=== PATIENT | male | born 1950 | race Caucasian/White ===

== ENCOUNTER 2018-02-18 14:43 | Inpatient (IN) | payer MEDICARE, OTHER ==
[~2018-02-18] VITALS: Ht 188 cm; Wt 90.9 kg
[2018-02-18] MEDS ORDERED: SODIUM CHLORIDE 0.9% 1,000 ML IV ONE (15:06)
[2018-02-18] MEDS ORDERED: ONDANSETRON HCL 4 MG/2 ML VIAL IV ONE (15:15)
[2018-02-18] MEDS ORDERED: MORPHINE SULFATE 4 MG/ML SYR/VIAL IV ONE (15:15)
[2018-02-18 16:23] LABS: Basophils # (auto) 0 uL; Eosinophils # (auto) 0 uL; Lymphocytes # (auto) 1.1 uL; Monocytes # (auto) 0.7 uL; Monocytes % (auto) 4.2 % (0.0-12.0); Nucleated Red Blood Cells % 0.1 %
[2018-02-18 16:25] LABS: Basophils % (auto) 0.2 % (0.0-2.0); Eosinophils % (auto) 0.1 % (0.0-7.0); Hematocrit 41.9 % (41.0-53.0); Hemoglobin 14.4 g/dL (13.5-17.5); Mean Corpuscular Hemoglobin 34.9 pg (28.0-32.0); Mean Corpuscular Hgb Conc. 34.3 g/dL (32.0-36.0); Mean Corpuscular Volume 101.7 fL (80.0-100.0); Neutrophils # (auto) 13.8 uL; Neutrophils % (auto) 88.5 % (37.0-80.0); Platelet Count (auto) 251 10^3/uL (140-450); Red Blood Cells 4.12 10^6/uL (4.5-5.90); Red Cell Distribution Width 13.3 % (11.8-14.3); White Blood Cell 15.6 10^3/uL (4.4-10.8)
[2018-02-18 16:34] LABS: Alanine Aminotransferase 49 U/L (16-61); Albumin 4.4 g/dL (3.4-5.0); Anion Gap 12 (5-15); Aspartate Aminotransferase 30 U/L (15-37); BUN/Creatinine Ratio 16.2; Blood Urea Nitrogen 17 mg/dL (7-18); Calcium 8.7 mg/dL (8.5-10.1); Carbon Dioxide 23 mmol/L (21-32); Chloride 107 mmol/L (98-107); GFR African American 90 mL/min; GFR Non-African American 75 mL/min; Glucose 115 mg/dL (74-106); Potassium 3.7 mmol/L (3.5-5.1); Sodium 142 mmol/L (136-145)
[2018-02-18 16:38] LABS: Alkaline Phosphatase 108 U/L (45-117); Bilirubin, Total 0.4 mg/dL (0.2-1.0); Total Protein 8.2 g/dL (6.4-8.2)
[2018-02-18] MEDS ORDERED: PIPERACILLIN-TAZOB 3.375GM 100 ML IV ONE (17:15)
[2018-02-18] MEDS ORDERED: ONDANSETRON HCL 4 MG/2 ML VIAL IV PRN (17:45)
[2018-02-18] MEDS ORDERED: cefTRIAXone 1GM/50ML D5W 50 ML IV ONE (17:45)
[2018-02-18] MEDS ORDERED: DOCUSATE SOD 100 MG CAP PO PRN (17:45)
[2018-02-18] MEDS ORDERED: MORPHINE SULFATE 4 MG/ML SYR/VIAL IV PRN (17:45)
[2018-02-18] MEDS ORDERED: TEMAZEPAM 15 MG CAP PO PRN (17:45)
[2018-02-18] MEDS ORDERED: ACETAMINOPHEN 325 MG TAB PO PRN (17:45)
[2018-02-18] MEDS ORDERED: HYDROcodone-ACET 5/325MG TAB PO PRN (17:45)
[2018-02-18] MEDS: SODIUM CHLORIDE 0.9% 1,000 ML IV SCH (18:07)
[2018-02-18 20:05] LABS: Urine Bacteria NONE SEEN /hpf (None Seen); Urine Blood 2+ /uL (Negative); Urine Mucus FEW (None Seen); Urine Specific Gravity 1.016 (1.001-1.035); Urine WBC 1 /hpf (0 - 3)
[2018-02-18 22:15] VITALS: BP 133/79
[2018-02-18] MEDS: FAMOTIDINE 20 MG TAB PO SCH (22:57)
[2018-02-19] VITALS (8 sets, daily range): BP systolic 104–133; BP diastolic 64–79
[2018-02-19] MEDS ORDERED: MULTTAB61 PO (00:14)
[2018-02-19] MEDS: SODIUM CHLORIDE 0.9% 1,000 ML IV SCH ×3 (02:03→18:47)
[2018-02-19 06:10] LABS: Basophils # (auto) 0 uL; Eosinophils # (auto) 0 uL; Eosinophils % (auto) 0.6 % (0.0-7.0); Monocytes % (auto) 13.4 % (0.0-12.0); Nucleated Red Blood Cells % 0.1 %
[2018-02-19 06:13] LABS: Basophils % (auto) 0.4 % (0.0-2.0); Hematocrit 35.7 % (41.0-53.0); Hemoglobin 12.7 g/dL (13.5-17.5); Lymphocytes # (auto) 1.7 uL; Lymphocytes % (auto) 22.4 % (10.0-50.0); Mean Corpuscular Hgb Conc. 35.6 g/dL (32.0-36.0); Mean Corpuscular Volume 100.3 fL (80.0-100.0); Neutrophils # (auto) 4.9 uL; Neutrophils % (auto) 63.2 % (37.0-80.0); Platelet Count (auto) 217 10^3/uL (140-450); Red Blood Cells 3.56 10^6/uL (4.5-5.90); Red Cell Distribution Width 13.4 % (11.8-14.3); White Blood Cell 7.7 10^3/uL (4.4-10.8)
[2018-02-19 06:19] LABS: Mean Corpuscular Hemoglobin 34.9 pg (28.0-32.0)
[2018-02-19 08:34] LABS: Potassium 3.9 mmol/L (3.5-5.1)
[2018-02-19 08:45] LABS: Albumin 3.4 g/dL (3.4-5.0); BUN/Creatinine Ratio 19.7; Bilirubin, Total 0.6 mg/dL (0.2-1.0); Calcium 8.6 mg/dL (8.5-10.1)
[2018-02-19] MEDS: MULTIPLE VITAMIN TAB PO SCH (09:26)
[2018-02-19] MEDS: FAMOTIDINE 20 MG TAB PO SCH ×2 (09:27→21:45)
[2018-02-19] MEDS: cefTRIAXone 1GM/50ML D5W 50 ML IV SCH (09:27)
[2018-02-19] MEDS ORDERED: MANNITOL FTV 25% 12.5 GM/50 ML 50 ML IV ONE (16:15)
[2018-02-19] MEDS ORDERED: KETOROLAC TROMETH 30 MG/ML 1ML VIAL IV PRN (17:15)
[2018-02-19] MEDS: TAMSULOSIN HYDROCHLORIDE 0.4 MG CAP PO SCH (17:52)
[2018-02-19] MEDS ORDERED: HYDROcodone-ACET 5/325MG TAB PO PRN (19:00)
[2018-02-20] MEDS: SODIUM CHLORIDE 0.9% 1,000 ML IV SCH ×3 (03:12→20:25)
[2018-02-20 05:13] VITALS: BP 121/74
[2018-02-20 06:27] LABS: Basophils # (auto) 0 uL; Eosinophils # (auto) 0.1 uL; Lymphocytes # (auto) 1.6 uL; Monocytes # (auto) 0.7 uL; Neutrophils # (auto) 3.8 uL; Nucleated Red Blood Cells % 0.1 %; White Blood Cell 6.2 10^3/uL (4.4-10.8)
[2018-02-20 06:30] LABS: Basophils % (auto) 0.3 % (0.0-2.0); Eosinophils % (auto) 1.2 % (0.0-7.0); Hematocrit 37.1 % (41.0-53.0); Mean Corpuscular Hemoglobin 35.1 pg (28.0-32.0); Mean Corpuscular Volume 100.5 fL (80.0-100.0); Monocytes % (auto) 11.5 % (0.0-12.0); Platelet Count (auto) 205 10^3/uL (140-450); Red Blood Cells 3.69 10^6/uL (4.5-5.90); Red Cell Distribution Width 13.5 % (11.8-14.3)
[2018-02-20 06:48] LABS: BUN/Creatinine Ratio 16.2; Calcium 8.5 mg/dL (8.5-10.1); Potassium 3.8 mmol/L (3.5-5.1)
[2018-02-20 08:00] VITALS: BP 144/82
[2018-02-20 09:00] VITALS: BP 144/82
[2018-02-20] MEDS: FAMOTIDINE 20 MG TAB PO SCH ×2 (09:02→21:52)
[2018-02-20] MEDS: MULTIPLE VITAMIN TAB PO SCH (09:02)
[2018-02-20] MEDS: cefTRIAXone 1GM/50ML D5W 50 ML IV SCH (09:03)
[2018-02-20 13:00] VITALS: BP 124/80
[2018-02-20 17:00] VITALS: BP 131/74
[2018-02-20] MEDS: TAMSULOSIN HYDROCHLORIDE 0.4 MG CAP PO SCH (17:11)
[2018-02-20 22:10] VITALS: BP 129/74
[2018-02-21] MEDS: SODIUM CHLORIDE 0.9% 1,000 ML IV SCH ×3 (05:11→20:43)
[2018-02-21 05:29] VITALS: BP 121/70
[2018-02-21 06:52] LABS: INR 1.05 (0.9-1.15); Partial Thromboplastin Time 29.4 sec (23.78-33.04); Prothrombin Time 11.2 sec (9.27-12.13)
[2018-02-21 09:00] VITALS: BP 142/79
[2018-02-21] MEDS: cefTRIAXone 1GM/50ML D5W 50 ML IV SCH (09:14)
[2018-02-21] MEDS: MULTIPLE VITAMIN TAB PO SCH (10:00)
[2018-02-21] MEDS: FAMOTIDINE 20 MG TAB PO SCH ×2 (10:00→21:21)
[2018-02-21] MEDS ORDERED: IOHEXOL 300 MG/ML 100ML BOTTLE IJ ONE (11:22)
[2018-02-21] MEDS ORDERED: ceFAZolin 1GM/50ML 50 ML IV ONE (11:24)
[2018-02-21] MEDS ORDERED: MIDAZOLAM HCL 1MG/1ML-2 ML VIAL ONE (11:30)
[2018-02-21] MEDS ORDERED: fentaNYL CITRATE 100 MCG/2 ML VL ONE (11:30)
[2018-02-21] MEDS ORDERED: PROPOFOL 10 MG/ML 20 ML IV ONE (11:45)
[2018-02-21] MEDS ORDERED: DEXAMETHASONE SOD PHOS 10MG/1ML VIAL INJ ONE (11:45)
[2018-02-21] MEDS ORDERED: MEPERIDINE HCL (50 MG/ML) 1 ML VIAL ONE (11:50)
[2018-02-21] MEDS ORDERED: ePHEDrine SULFATE 50 MG/ML AMP IV PRN (12:15)
[2018-02-21] MEDS ORDERED: KETOROLAC TROMETH 30 MG/ML 1ML VIAL IV ONE (12:15)
[2018-02-21] MEDS ORDERED: MORPHINE SULFATE 4 MG/ML SYR/VIAL IV PRN (12:15)
[2018-02-21] MEDS ORDERED: ONDANSETRON HCL 4 MG/2 ML VIAL IV ONE (12:15)
[2018-02-21] MEDS ORDERED: LABETALOL HCL 5 MG/ML 4ML SYRINGE IV PRN (12:15)
[2018-02-21] MEDS ORDERED: HYDROmorphone HCL 2 MG/ML VL IV PRN (12:15)
[2018-02-21] MEDS ORDERED: MIDAZOLAM HCL 1MG/1ML-2 ML VIAL IV PRN (12:15)
[2018-02-21] MEDS ORDERED: KETOROLAC TROMETH 30 MG/ML 1ML VIAL ONE (12:25)
[2018-02-21] MEDS ORDERED: MORPHINE SULFATE 4 MG/ML SYR/VIAL IV ONE (14:00)
[2018-02-21 17:00] VITALS: BP 144/83
[2018-02-21] MEDS: TAMSULOSIN HYDROCHLORIDE 0.4 MG CAP PO SCH (18:39)
[2018-02-21 22:00] VITALS: BP_SYST 114; BP_SYST 121; BP_DIAS 69; BP_DIAS 77
[2018-02-21 22:08] VITALS: BP 114/77
[2018-02-22] MEDS: SODIUM CHLORIDE 0.9% 1,000 ML IV SCH (01:55)
[2018-02-22 05:36] VITALS: BP 107/70
[2018-02-22] MEDS: cefTRIAXone 1GM/50ML D5W 50 ML IV SCH (09:00)
[2018-02-22] MEDS: FAMOTIDINE 20 MG TAB PO SCH (10:00)
[2018-02-22] MEDS: MULTIPLE VITAMIN TAB PO SCH (10:00)
== END 2018-02-22 11:58 | disposition home or self-care (01) | DRG 691 ==
LOC: ER 14:47 → OVERFLOW 14:48 → WEST WING 21:49
PROVIDERS: ADMIT Internal Medicine; ATTEND Family Medicine
PROC: 0TF7XZZ Fragmentation in Left Ureter, External Approach (ICD-10-PCS; principal; 2018-02-21 11:35)
DX: N20.0 Calculus of kidney (principal); N13.6 Pyonephrosis; N18.2 Chronic kidney disease, stage 2 (mild); K76.0 Fatty (change of) liver, not elsewhere classified; K40.90 Unilateral inguinal hernia, without obstruction or gangrene, not specified as recurrent; Z82.49 Family history of ischemic heart disease and other diseases of the circulatory system
CPT/HCPCS: 36415; 71045; 74176; 80048; 80053; 81001; 84484; 85025; 85610; 85730; 87040; 87086; 93005; 96361; 96365; 96375; J0690; J0696; J1100; J1885; J2250; J2405; J2543; J2704

== ENCOUNTER → 2018-05-28 | Outpatient (CLI) | payer MEDICARE ==
[~2018-05-28] MED LIST: MULTTAB61 PO
[2018-05-28 10:02] LABS: Basophils # (auto) 0 uL; Eosinophils # (auto) 0 uL; Eosinophils % (auto) 0.4 % (0.0-7.0); Hemoglobin 15.2 g/dL (13.5-17.5); Monocytes # (auto) 0.8 uL; Neutrophils # (auto) 6.7 uL; White Blood Cell 8.6 10^3/uL (4.4-10.8)
[2018-05-28 10:05] LABS: Basophils % (auto) 0.4 % (0.0-2.0); Hematocrit 43.7 % (41.0-53.0); Lymphocytes % (auto) 11.9 % (10.0-50.0); Mean Corpuscular Hemoglobin 34.5 pg (28.0-32.0); Mean Corpuscular Hgb Conc. 34.8 g/dL (32.0-36.0); Mean Corpuscular Volume 99.3 fL (80.0-100.0); Monocytes % (auto) 9.1 % (0.0-12.0); Neutrophils % (auto) 78.2 % (37.0-80.0); Platelet Count (auto) 283 10^3/uL (140-450); Red Cell Distribution Width 13.1 % (11.8-14.3)
[2018-05-28 10:10] LABS: Uric Acid 4.8 mg/dL (3.5-7.2)
== END | disposition home or self-care (01) ==
LOC: LAB 09:04
PROVIDERS: ATTEND Internal Medicine
DX: Z12.11 Encounter for screening for malignant neoplasm of colon (principal); N18.2 Chronic kidney disease, stage 2 (mild); Z79.899 Other long term (current) drug therapy
CPT/HCPCS: 36415; 80061; 83036; 84550; 85025

== ENCOUNTER → 2018-05-30 | Outpatient (CLI) | payer MEDICARE | END | disposition home or self-care (01) | LOC: LAB 09:57 | PROVIDERS: ATTEND Internal Medicine | DX: Z12.11 Encounter for screening for malignant neoplasm of colon (principal); N18.2 Chronic kidney disease, stage 2 (mild) | CPT/HCPCS: 82270 ==

== ENCOUNTER → 2018-09-09 | Outpatient (CLI) | payer MEDICARE ==
[2018-09-10 10:51] LABS: Cholesterol 213 mg/dL (< 200); Triglycerides 75 mg/dL (< 150)
[2018-09-10 10:55] LABS: HDL Cholesterol 36 mg/dL (40-59); LDL Cholesterol 168 mg/dL (< 100)
== END | disposition home or self-care (01) ==
LOC: LAB 08:17
PROVIDERS: ATTEND Internal Medicine
DX: Z12.5 Encounter for screening for malignant neoplasm of prostate (principal); D64.9 Anemia, unspecified; R79.89 Other specified abnormal findings of blood chemistry
CPT/HCPCS: 36415; 80061; 84153; 84443

== ENCOUNTER → 2019-01-06 | Outpatient (CLI) | payer MEDICARE ==
[2019-01-06 10:08] LABS: Cholesterol 152 mg/dL (< 200); Triglycerides 80 mg/dL (< 150)
[2019-01-06 10:10] LABS: HDL Cholesterol 31 mg/dL (40-59); LDL Cholesterol 109 mg/dL (< 100)
== END | disposition home or self-care (01) ==
LOC: LAB 07:58
PROVIDERS: ATTEND Internal Medicine
DX: E78.5 Hyperlipidemia, unspecified (principal)
CPT/HCPCS: 36415; 80061

== ENCOUNTER 2021-02-07 11:31 | Emergency (ER) | payer MEDICARE ==
[~2021-02-07] VITALS: Ht 188 cm; Wt 88.5 kg
[~2021-02-07 11:31] MED LIST changes: +MULT-1018 PO; -MULTTAB61 PO
[2021-02-07 13:31] VITALS: BP 157/76
== END 2021-02-07 13:41 | disposition short-term general hospital (02) ==
LOC: ER 11:31
DX: S06.5X9A Traumatic subdural hemorrhage with loss of consciousness of unspecified duration, initial encounter (principal); W01.0XXA Fall on same level from slipping, tripping and stumbling without subsequent striking against object, initial encounter; Y93.89 Activity, other specified; Y92.89 Other specified places as the place of occurrence of the external cause; Y99.8 Other external cause status
CPT/HCPCS: 70450; 70486; 72125; 99291

== ENCOUNTER 2025-02-22 09:39 | Emergency (ER) | payer MEDICARE ==
[~2025-02-22] VITALS: Ht 188 cm; Wt 89.9 kg
[2025-02-22 09:40] VITALS: BP 158/100; PULSE 96; RESP 15; TEMP 98.2; O2SAT 99
--- NOTE | 2025-02-22 10:15 | ED.PDOC ---
General HPI Comments 74-year-old male presents to the ER with a prior MHx of kidney stone: Surgical history of kidney stone removal and the chief complaint of flank pain. Patient reports on having a sudden onset of right sided flank pain which radiated to the right lower quadrant of the abdomen last night of a 7/10 on the pain scale. When the patient woke up this morning he had 3/10 right-sided flank pain which radiated to the right lower back. Patient notes on having one episode of emesis last night and his pain is currently mild. Denies any other symptoms at this time. Chief Complaint: Flank Pain Time Seen by MD: 10:10 Primary Care Provider: TAIWO Reviewed notes: Nurses Notes, Medications, Allergies Allergies: Coded Allergies: No Known Drug Allergy (Verified Allergy, Unknown, 02/07/21) Home Meds Active Scripts Ibuprofen Micronized (Ibuprofen) 800 Mg Tab, 800 MG PO Q8HPRN PRN for 10 Days, #30 TAB 0 Refills Prov:CAIT HAILE NP 02/22/25 Tamsulosin Hcl (Tamsulosin Hcl) 0.4 Mg Cap, 1 CAP PO DAILY for 30 Days, #30 CAP 0 Refills Prov:CAIT HAILE NP 02/22/25 Reported Medications Multiple Vitamin (Multivitamins) Tab, 1 TAB PO DAILY, #90 TAB 3 Refills 02/19/18 Information Source: Patient Mode of Arrival: Ambulatory Severity: Moderate Timing: Hours Duration: Since onset, Hours Prehospital treatment: None Onset: Spontaneous Symptoms: None History of: Kidney stone Location: Suprapubic, (R) Flank, Other (Right lower back pain) associated signs and symptoms: Abdominal Pain, Vomiting, Flank Pain, Back Pain Past Medical History PAST MEDICAL HISTORY: Kidney Stones Surgical History: Hernia Repair Surgical History (Other): Kidney stone removal Family History Family History: Reviewed,noncontributory to illness, Unknown Social History Smoker: Non-Smoker Alcohol: Denies ETOH Use Drugs: Denies Drug Use Lives In: Home Constitutional: denies: chills, diaphoresis, fatigue, fever, malaise, sweats, weakness, others EENTM: denies: blurred vision, double vision, ear bleeding, ear discharge, ear drainage, ear pain, ear ringing, eye pain, eye redness, hearing loss, mouth pain, mouth swelling, nasal discharge, nose bleeding, nose congestion, nose pain, photophobia, tearing, throat pain, throat swelling, voice changes, others Respiratory: denies: cough, hemoptysis, orthopnea, SOB at rest, shortness of breath, SOB with excertion, stridor, wheezing, others Cardiovascular: denies: chest pain, dizzy spells, diaphoresis, Dyspnea on exertion, edema, irregular heart beat, left arm pain, lightheadedness, palpitations, PND, syncope, others Gastrointestinal: reports: abdominal pain; denies: abdomen distended, blood streaked bowels, constipated, diarrhea, dysphagia, difficulty swallowing, hematemesis, melena, nausea, poor appetite, poor fluid intake, rectal bleeding, rectal pain, vomiting, others Genitourinary: reports: flank pain; denies: burning, dysuria, frequency, hematuria, incontinence, penile discharge, penile sore, pain, testicle pain, testicle swelling, urgency, others Neurological: denies: dizziness, fainting, headache, left sided numbness, left sided weakness, numbness, paresthesia, pre-existing deficit, right sided numbness, right sided weakness, seizure, speech problems, tingling, tremors, weakness, others Musculoskeletal: reports: back pain; denies: gout, joint pain, joint swelling, muscle pain, muscle stiffness, neck pain, others Integumetry: denies: bruises, change in color, change in hair/nails, dryness, laceration, lesions, lumps, rash, wounds, others Allergic/Immunocompromised: denies: Difficulty Healing, Frequent Infections, Hives, Itching, others Hematologic/Lymphatic: denies: anemia, blood clots, easy bleeding, easy bruising, swollen glands, others Endocrine: denies: excessive hunger, excessive sweating, excessive thirst, excessive urination, flushing, intolerance to cold, intolerance to heat, unexp lained weight gain, unexplained weight loss, others Psychiatric: denies: anxiety, bipolar disorder, depression, hopeless, panic disorder, schizophrenia, sleepless, suicidal, others All Other Systems: Reviewed and Negative Physical Exam General Appearance: No Apparent Distress, Normal HEENT: Normal ENT Inspection, Pharynx Normal, TMs Normal Neck: Full Range of Motion, Non-Tender, Normal, Normal Inspection Respiratory: Chest Non-Tender, Lungs Clear, No Accessory Muscle Use, No Respiratory Distress, Normal Breath Sounds Cardiovascular: No Edema, No JVD, No Murmur, No Gallop, Normal Peripheral Pulse s, Regular Rate/Rhythm Breast Exam: Deferred Gastrointestinal: No Organomegaly, Non Tender, No Pulsatile Mass, Normal Bowel Sounds, Soft Genitalia: Deferred Pelvic: Deferred Rectal: Deferred Extremities: No calf tenderness, Normal capillary refill, Normal inspection, Normal range of motion, Non-tender, No pedal edema Musculoskeletal : Apperance: Normal Neurologic: Alert, travel clerk II-XII nml as Tested, No Motor Deficits, Normal Affect, Normal Mood, No Sensory Deficits Cerebellar Function: Normal Reflexes: Normal Skin: Dry, Normal Color, Warm Lymphatic: No Adenopathy Was a procedure done? Was a procedure done?: No Differential Diagnosis Kidney stone (Female): Other X-Ray, Labs, Meds, VS Vital Signs Date Time Temp Pulse Resp B/P (MAP) Pulse Ox O2 Delivery O2 Flow Rate FiO2 02/22/25 09:40 98.2 96 15 158/100 99 98.2 Lab Test 02/22/25 10:54 02/22/25 10:00 Range/Units White Blood Count 9.9 4.4-10.8 10^3/uL Red Blood Count 3.28 L 4.5-5.90 10^6/uL Hemoglobin 12.2 L 13.5-17.5 g/dL Hematocrit 36.2 L 41.0-53.0 % Mean Corpuscular Volume 110.5 H 80.0-100.0 fL Mean Corpuscular Hemoglobin 37.2 H 28.0-32.0 pg Mean Corpuscular Hemoglobin Concent 33.7 32.0-36.0 g/dL Red Cell Distribution Width 16.0 H 11.8-14.3 % Platelet Count 388 140-450 10^3/uL Mean Platelet Volume 9.1 6.9-10.8 fL Neutrophils (%) (Auto) 70.7 37.0-80.0 % Lymphocytes (%) (Auto) 13.6 10.0-50.0 % Monocytes (%) (Auto) 14.8 H 0.0-12.0 % Eosinophils (%) (Auto) 0.2 0.0-7.0 % Basophils (%) (Auto) 0.7 0.0-2.0 % Neutrophils # (Auto) 7.0 1.6-8.6 10 ^3/uL Lymphocytes # (Auto) 1.4 0.4-5.4 10 ^3/uL Monocytes # (Auto) 1.5 H 0-1.3 10 ^3/uL Eosinophils # (Auto) 0 0-0.8 10 ^3/uL Basophils # (Auto) 0.1 0-0.2 10 ^3/uL Nucleated Red Blood Cells 0.1 % Platelet Estimate Adequate Macrocytosis Slight Sodium Level 141 136-145 mmol/L Potassium Level 4.2 3.5-5.1 mmol/L Chloride Level 106 98-107 mmol/L Carbon Dioxide Level 24 20-31 mmol/L Anion Gap 11 5-15 Blood Urea Nitrogen 15 9-23 mg/dL Creatinine 1.08 0.700-1.30 mg/dL Glomerular Filtration Rate Calc 72 >90 mL/min BUN/Creatinine Ratio 13.9 10.0-20.0 Serum Glucose 102 74-106 mg/dL Calcium Level 9.7 8.7-10.4 mg/dL Lipase 40 12-53 U/L Urine Color Yellow Yellow Urine Clarity Clear Clear Urine pH 6.5 5.0-9.0 Urine Specific [place] 1.021 1.001-1.035 Urine Protein Trace H Negative Urine Ketones Negative Negative Urine Blood 3+ H Negative /uL Urine Nitrite Negative Negative Urine Bilirubin Negative Negative Urine Urobilinogen 2 H Negative mg/dL Urine Leukocyte Esterase Negative Negative /uL Urine RBC 139 0 - 3 /hpf Urine Microscopic WBC 6 H 0-3 /HPF Urine Squamous Epithelial Cells None seen <5 /hpf Urine Bacteria None seen None Seen /hpf Urine Mucus Few None Seen Urine Glucose Normal Normal mg/dL X-Ray, Labs, Meds, VS Comment 74-year-old male presents to the ER with a prior MHx of kidney stone: Surgical history of kidney stone removal and the chief complaint of flank pain. Patient arrives alert and oriented, ABC's intact, afebrile, vital signs stable, saturating well in room air Peripheral IV insertion+ labs were ordered. BMP was ordered to exclude electrolyte abnormalities, renal failure, dehydration, hyperglycemia CMP was ordered to exclude electrolyte abnormalities, renal failure, dehydration, hyperglycemia and/or liver enzyme abnormalities. Lipase Urinalysis was ordered to rule out UTI or hematuria. bilateral nonobstructing renal calculi VSS, patient in NAD, afebrile. Exam as above. The patient's presentation is consistent with kidney stones. Presentation most consistent with Renal Colic from a Non-infected Kidney Stone. Low suspicion for atypical appendicitis, torsion, acute cholecystitis, AAA, Aortic Dissection, Serious Bacterial Illness or other emergent intra-abdominal pathology given the patient is overall well appearing, afebrile, and with lab findings as above. Other abdominal causes considered; however this is less likely as the patient's abdominal exam is overall benign, making my suspicion for diverticulitis vs appendicitis vs biliary etiology less likely at this time. Given the size of the kidney stone, the patient will most likely pass the stone spontaneously. The patient was advised to continue with symptomatic treatment at home. They were also given a prescription for Flomax, as well as provided with a referral to urology. The patient is overall well appearing and non-toxic while in the ED. The patient was counseled in regard to the diagnosis and management of the condition and verbalized understanding of this. The patient understands to return to the ER or seek immediate medical attention if the symptoms worsen or return. The patient was also advised to follow up with PCP for continued management and preventative options. Additional MDM Review of External, Non-ED records: External records reviewed. Discussion with independent historian (EMS, family) history obtained from the patient/parents (if applicable) at bedside Chronic conditions affecting care: None Social determinants of health affecting care: None Consideration of admission (observation or admission): I considered escalation of care to admission for this patient, however given the reassuring workup, the patient is safe for outpatient management. Discussion with the Radiology: No Tests considered but not performed: Prescription medication considered but not given: 12 lead EKG interpretation: Time of 1ST Reevaluation: 10:40 Reevaluation 1ST: Unchanged Time of 2ND Reevaluation: 14:00 Reevaluation 2ND: Improved Patient Education/Counseling: Diagnosis, Treatment, Prognosis Family Education/Counseling: No Family Present SEPSIS Sepsis Screen Date sepsis recognized/suspect: Feb 22, 2025 Time Sepsis recognized/suspect: 0942 Recent Procedure: No On Antibiotic Therapy: No Respiratory Rate >20: No Heart Rate >90: No Temp<36 C (96.8 F) or >38.3 C: No SBP <90 or MAP <65 mmHG: No New Acute Mental Status Change: No Is the patient on CPAP, BIPAP,: No Physician Orders Heplock Iv (02/22/25 ) Ct Ab Pelvis W Wo Con-Iv Only (02/22/25 12:28) Vital Signs Date Time Temp Pulse Resp B/P (MAP) Pulse Ox O2 Delivery O2 Flow Rate FiO2 02/22/25 09:40 98.2 96 15 158/100 99 98.2 Laboratory Tests Test 02/22/25 10:54 White Blood Count 9.9 10^3/uL (4.4-10.8) Departure 1 Departure Time of Disposition: 14:16 Impression: Primary Impression: Bilateral kidney stones Disposition: 01 HOME / SELF CARE / HOMELESS Condition: Stable e-Prescriptions Ibuprofen Micronized (Ibuprofen) 800 Mg Tab 800 MG PO Q8HPRN PRN for 10 Days, #30 TAB 0 Refills Prov: CAIT HAILE NP 02/22/25 Tamsulosin Hcl (Tamsulosin Hcl) 0.4 Mg Cap 1 CAP PO DAILY for 30 Days, #30 CAP 0 Refills Prov: CAIT HAILE NP 02/22/25 Critical Care Note Critical Care Time?: No Stability Stability form required: No Heart Score Heart Score: Heart Score Response (Comments) Value History N/A 0 EKG N/A 0 Age N/A 0 Risk Factors N/A 0 Troponin N/A 0 Total 0 I personally scribed for CAIT HAILE NP ([email or web address]) on 02/22/25 at 10:15. Electronically submitted by Cristofer Jauregui ([email or web address]). CAIT HAILE NP Feb 22, 2025 10:15
[2025-02-22 10:26] LABS: Urine Protein, UAD TRACE (Negative)
[2025-02-22 11:20] LABS: Hematocrit 36.2 % (41.0-53.0); Hemoglobin 12.2 g/dL (13.5-17.5); Mean Corpuscular Hemoglobin 37.2 pg (28.0-32.0); Mean Corpuscular Volume 110.5 fL (80.0-100.0); Nucleated Red Blood Cells % 0.1 %
[2025-02-22 11:26] LABS: Chloride 106 mmol/L (98-107); Potassium 4.2 mmol/L (3.5-5.1); Sodium 141 mmol/L (136-145)
[2025-02-22 11:27] LABS: Anion Gap 11 (5-15); Carbon Dioxide 24 mmol/L (20-31)
[2025-02-22 11:28] LABS: Calcium 9.7 mg/dL (8.7-10.4)
[2025-02-22 11:32] LABS: BUN/Creatinine Ratio 13.9 (10.0-20.0); Blood Urea Nitrogen 15 mg/dL (9-23); Glucose 102 mg/dL (74-106)
[2025-02-22 11:51] LABS: Macrocytosis Slight
[2025-02-22 12:11] LABS: Lipase 40 U/L (12-53)
[2025-02-22] MEDS: IOHEXOL 300 MG/ML 100ML BOTTLE IJ ONE (13:20)
--- NOTE | 2025-02-22 13:56 | DVH ---
CLINICAL HISTORY: flank pain. stones r/o serious pathology TECHNIQUE: CT of the abdomen and pelvis was performed with and without IV contrast. This exam was per formed according to our departmental dose optimization program. Up-to-date CT equipment and radiation dose reduction techniques are utilized as appropriate. CTDI 17.4 DLP 1923 COMPARISON: None FINDINGS: Abdomen/Pelvis: The spleen, pancreas, gallbladder, right adrenal gland, and bladder are grossly unremarkable. There are subcentimeter hypodense lesions in both kidneys which are incompletely characterized due to lack of IV contrast. There is mild right hydroureteronephrosis with no bladder stone or urothelial t hickening seen. There are 2 mm bilateral nonobstructing renal calculi. There is diffuse hepatic steatosis. The prostate gland is moderately enlarged, measuring 5.2 cm in tr ansverse diameter. There is a 1.8 cm left adrenal nodule, which is indeterminate on this study. The abdominal aorta is normal in course and caliber. There are [id number] atherosclerotic calci fications. There is no free intraperitoneal air or fluid. There is no enlarged abdominal or pelvic lymph node. There is no bowel wall thickening or dilatation. The appendix is normal. Other: The imaged lower thorax is unremarkable. No acute osseous abnormality is evident. IMPRESSION: Mild right hydroureteronephrosis with no stone seen. Please correlate with urinalysis. Bilateral punctate nonobstructing renal calculi. Diffuse hepatic steatosis. Indeterminate 1.8 cm left adrenal nodule. Nonemergent adrenal MRI suggestive for further evaluation.
[2025-02-22] MEDS ORDERED: TAMS0.4C39 PO (14:17)
[2025-02-22] MEDS ORDERED: IBUP-1455 PO (14:24)
== END 2025-02-22 14:35 | disposition home or self-care (01) ==
LOC: ER 09:39
DX: N13.2 Hydronephrosis with renal and ureteral calculous obstruction (principal); Z87.442 Personal history of urinary calculi; Z98.890 Other specified postprocedural states
CPT/HCPCS: 36415; 74178; 80048; 81001; 83690; 85025; 99285; Q9967